=== PATIENT | female | born 1980 | race Caucasian/White ===

== ENCOUNTER 2016-11-11 06:09 | Emergency (ER) | payer OTHER ==
[~2016-11-11] VITALS: Ht 165.1 cm; Wt 75.5 kg
[~2016-11-11 06:09] MED LIST: CARB15DR50 BOTH EARS; FERR325C PO; METF500T4 PO; NORE1TAB12 PO; NPH10OT BOTH EARS
[2016-11-11 06:13] VITALS: Ht 165.1 cm; Wt 75.5 kg
[2016-11-11] MEDS ORDERED: LIDOCAINE 2% (MDV) 20 ML INJ INJ ONE (08:00)
[2016-11-11] MEDS ORDERED: CEFTRIAXONE 1 GM INJ IM ONE (08:00)
[2016-11-11] MEDS ORDERED: SULF1TAB31 PO (09:07)
[2016-11-11] MEDS ORDERED: CEPH-443 PO (09:08)
[2016-11-11] MEDS ORDERED: BEN25 PO (09:20)
--- NOTE | 2016-11-11 09:20 | ERD ---
ER Documentation Chief Complaint Date/Time DATE: 11/11/16 TIME: 09:17 Chief Complaint POSSIBLE INSECT BITE TO GHAZALA HPI This is a 36-year-old female presents to the ER with an insect bite to her left upper arm that occurred on Saturday. Patient states that area became swollen and itchy, and she noticed that area became more red and warm to the touch. Patient does admit to tactile fevers. She denies any numbness or tingling of the area. She denies any chest pain or shortness of breath. She does admit to mild headache and some nausea. She denies vomiting or diarrhea. Patient denies any urinary frequency or dysuria. ROS 12 point review of systems was done, all negative except per HPI. Medications Home Meds Active Scripts Cephalexin* (Keflex*) 500 Mg Capsule, 500 MG PO QID for 7 Days, CAP Prov:EMERITA AVELAR 11/11/16 Sulfamethoxazole/Trimethoprim* (Bactrim Ds* Tablet) 1 Each Tablet, 1 TAB PO BID , #14 TAB Prov:EMERITA AVELAR 11/11/16 Neomycin/Polymyxin/Hydrocort* (Cortisporin* Otic) 10 Ml Susp, 4 DROP BOTH EARS QID for 7 Days, EA Prov:VARSHA WELLS PA-C 04/22/16 Carbamide Peroxide* (Debrox*) 6.5% - 15 Ml Drops, 10 DROP BOTH EARS BID, #1 BOTTLE Prov:VARSHA WELLS PA-C 04/22/16 Metformin* (Glucophage*) 500 Mg Tab, 500 MG PO BID, #20 TAB Prov:VARSHA WELLS PA-C 04/22/16 Noreth A-Et Estra/Fe Fumarate (LO LOESTRIN FE 1-10 TABLET) 1 Each Tablet, 1 EACH PO QHS for 28 Days, TAB Prov:EMERITA AVELAR 07/26/15 Ferrous Sulfate (Iron) 325 Mg Capsr, 325 MG PO TID for 30 Days Prov:EMERITA AVELAR 07/26/15 Metformin Hcl* (Metformin Hcl*) 500 Mg Tablet, 500 MG PO BID, #60 TAB Prov:EMERITA AVELAR 07/26/15 Allergies Allergies: Coded Allergies: No Known Allergy (Unverified , 11/11/16) PMhx/Soc History of Surgery: No Anesthesia Reaction: No Hx Neurological Disorder: No Hx Respiratory Disorders: No Hx Cardiac Disorders: No Hx Psychiatric Problems: No Hx Miscellaneous Medical Probl: No Hx Alcohol Use: No Hx Substance Use: No Hx Tobacco Use: No Smoking Status: Never smoker Physical Exam Vitals Vital Signs Date Time Temp Pulse Resp B/P Pulse Ox O2 Delivery O2 Flow Rate FiO2 11/11/16 06:13 99.1 82 16 110/66 97 Physical Exam GENERAL: The patient is well developed and appropriate for usual state of health , in no apparent distress. HEENT: Atraumatic. CHEST: Clear to auscultation bilaterally. There are no rales, wheezes or rhonchi. HEART: Regular rate and rhythm. No murmurs, clicks, rubs or gallops. EXTREMITIES: Equal pulses bilaterally. There is no peripheral clubbing, cyanosis or edema. No focal swelling or erythema. Full range of motion. Grossly neurovascularly intact. NEURO: Alert and oriented. Cranial nerves II through XII are intact. Motor strength in all 4 extremities with 5/5 strength. Sensation grossly intact. Normal speech and gait. SKIN: There is a bug bite to the left upper inner arm with surrounding erythema that extends about 6 cm from bug bite. Area is slightly swollen and warm to the touch. No lymphatic streaking. Results 24 hrs Laboratory Tests Test 11/11/16 08:31 Bedside Glucose 289mg/dL Current Medications Medications (Trade) Dose Ordered Sig/Hari Route PRN Reason Start Time Stop Time Status Last Admin Dose Admin Ceftriaxone Sodium (Rocephin) 1 gm ONCE ONCE IM 11/11/16 08:00 11/11/16 08:01 DC 11/11/16 07:50 Lidocaine (Xylocaine 2% (Mdv) 20 ml) 20 ml ONCE ONCE INJ 11/11/16 08:00 11/11/16 08:01 DC 11/11/16 07:51 Procedures/MDM This is a 36-year-old female presents to the ER after being bitten by a bag on Saturday. Area does appear to be infected with surrounding erythema and warmth to the touch. Patient does have a past medical history of diabetes and therefore was given a shot of Rocephin here in the ER without any complications she will be sent home with both Bactrim and Keflex. At this time patient is afebrile and well-appearing. Suspicion for sepsis is low. Suspicion for osteomyelitis, deep space infection, acute compartment syndrome is low. Patient has full range of motion of her upper extremity and is neurovascularly intact. She is stable for outpatient follow-up. Patient is to follow-up with her primary care doctor within 1-2 days or return to ER sooner if symptoms worsen. My medical decision making shared with the patient she understands and agrees with plan. Departure Diagnosis: Primary Impression: Cellulitis Condition: Stable Patient Instructions: Cellulitis Additional Instructions: Call your primary care doctor TOMORROW for an appointment during the next 1-2 days.See the doctor sooner or return here if your condition worsens before your appointment time. EMERITA AVELAR Nov 11, 2016 09:20
[2016-11-11] MEDS ORDERED: ONDA-43 PO (09:21)
== END 2016-11-11 09:36 | disposition home or self-care (01) ==
LOC: FTE 06:09
DX: S40.862A Insect bite (nonvenomous) of left upper arm, initial encounter (principal); L03.114 Cellulitis of left upper limb; W57.XXXA Bitten or stung by nonvenomous insect and other nonvenomous arthropods, initial encounter; Y92.9 Unspecified place or not applicable; Z79.84 Long term (current) use of oral hypoglycemic drugs
CPT/HCPCS: 82962; 96372; J0696; Z7502; Z7610

== ENCOUNTER 2018-08-18 18:08 | Emergency (ER) | payer SELFPAY ==
[~2018-08-18] VITALS: Wt 74.2 kg
[~2018-08-18 18:08] MED LIST changes: +BEN25 PO; +CEPH-443 PO; +METF-849 PO; +METF500T24 PO; -METF500T4 PO; +ONDA4TAB13 PO; +SULF1TAB31 PO
[2018-08-18 18:33] VITALS: BP 127/78; PULSE 78; RESP 18
[2018-08-18] MEDS ORDERED: ACETAMINOPHEN 325 MG TAB PO STA (19:40)
--- NOTE | 2018-08-18 19:46 | ERD ---
ER Documentation Chief Complaint Chief Complaint non traumatic headache for 3 wks. no neuro deficit noted. HPI This is a 38-year-old female patient who presents to the emergency room with c omplaint of pain to right face radiating into right ear and up behind right skull and bilateral upper trapezius. +throbbing. +photophobia, +photophobia, + numbness, +subjective fever, denies tooth pain. No recent illnesses, no significant medical history. ROS All systems reviewed and are negative except as per history of present illness. Medications Home Meds Active Scripts Hydrocodone/Acetaminophen (G[place]mora 10-325 Tablet) 1 Each Tablet, 1 TAB PO Q6H PRN for PAIN, #7 TAB Prov:WILLIAMS HORN TRANSFORMER REPAIRER 08/18/18 Gabapentin* (Gabapentin*) 300 Mg Capsule, 300 MG PO BID, #20 CAP Prov:WILLIAMS HORN TRANSFORMER REPAIRER 08/18/18 Ondansetron Hcl* (Zofran*) 4 Mg Tab, 4 MG PO Q4H PRN for NAUSEA AND OR VOMITING, #20 TAB Prov:EMERITA AVELAR 11/11/16 Diphenhydramine Hcl* (Benadryl*) 25 Mg Cap, 25 MG PO Q6, #30 CAP Prov:EMERITA AVELAR 11/11/16 Cephalexin* (Keflex*) 500 Mg Capsule, 500 MG PO QID for 7 Days, CAP Prov:EMERITA AVELAR 11/11/16 Sulfamethoxazole/Trimethoprim* (Bactrim Ds* Tablet) 1 Each Tablet, 1 TAB PO BID, #14 TAB Prov:EMERITA AVELAR 11/11/16 Neomycin/Polymyxin/Hydrocort* (Cortisporin* Otic) 10 Ml Susp, 4 DROP BOTH EARS QID for 7 Days, EA Prov:VARSHA WELLS PA-C 04/22/16 Carbamide Peroxide* (Debrox*) 6.5% - 15 Ml Drops, 10 DROP BOTH EARS BID, #1 BOTTLE Prov:VARSHA WELLS PA-C 04/22/16 Metformin* (Glucophage*) 500 Mg Tab, 500 MG PO BID, #20 TAB Prov:VARSHA WELLS PA-C 04/22/16 Noreth A-Et Estra/Fe Fumarate (LO LOESTRIN FE 1-10 TABLET) 1 Each Tablet, 1 EACH PO QHS for 28 Days, TAB Prov:EMERITA AVELAR 07/26/15 Ferrous Sulfate (Iron) 325 Mg Capsr, 325 MG PO TID for 30 Days Prov:EMERITA AVELAR 07/26/15 Metformin Hcl* (Metformin Hcl*) 500 Mg Tablet, 500 MG PO BID, #60 TAB Prov:EMERITA AVELAR 07/26/15 Allergies Allergies: Coded Allergies: No Known Allergy (Unverified , 11/11/16) PMhx/Soc Medical and Surgical Hx: pt denies Medical Hx, pt denies Surgical Hx History of Surgery: No Anesthesia Reaction: No Hx Neurological Disorder: No Hx Respiratory Disorders: No Hx Cardiac Disorders: No Hx Psychiatric Problems: No Hx Miscellaneous Medical Probl: No Hx Alcohol Use: No Hx Substance Use: No Hx Tobacco Use: No Smoking Status: Never smoker FmHx Family History: No diabetes, No coronary disease, No other Physical Exam Vitals Vital Signs Date Temp Pulse Resp B/P (MAP) Pulse Ox O2 O2 Flow FiO2 Time Delivery Rate 08/18/18 98.8 78 18 127/78 99 18:33 (94) Physical Exam GENERAL APPEARANCE: Well developed, well nourished, alert and cooperative, and appears to be in no acute distress. HEAD: normocephalic, no scalp tenderness, no tenderness at synagogue, no palpable temporal artery EYES: PERRLA, EOMI. Vision is grossly intact. No tearing. No ptosis. EARS: External auditory canals and tympanic membranes clear, hearing grossly intact. +preauricular tenderness to right ear. NOSE: No nasal discharge, +tenderness @ right maxillary sinus THROAT: Oral cavity and pharynx normal. No inflammation, swelling, exudate, pteechiae or lesions. Teeth and gingiva in good general condition. NECK: Neck supple, non-tender without lymphadenopathy, masses or thyromegaly. FROM. CARDIAC: Normal S1 and S2. No S3, S4 or murmurs. Rhythm is regular. There is no peripheral edema, cyanosis or pallor. Extremities are warm and well perfused. Capillary refill is less than 2 seconds. No carotid bruits. LUNGS: Clear to auscultation and percussion without rales, rhonchi, wheezing or diminished breath sounds. ABDOMEN: Positive bowel sounds. Soft, non-distended, non-tender. No guarding or rebound. No murmurs MUSKULOSKELETAL: Adequately aligned spine. ROM intact spine and extremities. No joint erythema or tenderness. Normal muscular development. Normal gait. BACK: Examination of the spine reveals normal gait and posture, no spinal deformity, symmetry of spinal muscles, without tenderness, decreased range of motion or muscular spasm. EXTREMITIES: No significant deformity or joint abnormality. No edema. Peripheral pulses intact. NEUROLOGICAL: A&Ox4, CN II-XII intact. Increased sensation to palpation of right face, equal smile, clear speech. Strength and sensation symmetric and intact throughout. Gait steady. Cerebellar testing normal. SKIN: Skin normal color, texture and turgor with no lesions or eruptions PSYCHIATRIC: The mental examination revealed the patient was oriented to person, place, and time. The patient was able to demonstrate good judgment and reason, without hallucinations, abnormal affect or abnormal behaviors during the examination. l Results 24 hrs Laboratory Tests Test 08/18/18 18:35 Bedside Glucose 447 mg/dL Current Medications Medications Dose Sig/Hari Start Time Status Last (Trade) Ordered Route PRN Stop Time Admin Dose Reason Admin 650 mg ONCE STAT 08/18/18 DC 08/18/18 Acetaminophen PO 19:40 19:51 (Tylenol 08/18/18 19:46 Tab) Procedures/MDM This is a 38-year-old female patient who presented to the emergency room with complaint of right-sided facial and head pain increasing in severity severity for 3 weeks. States this is the first time she has had a headache or facial pain with these symptoms. ED COURSE: The patient was stable throughout ED course. I kept the patient and family informed of diagnostic imaging results throughout the ED course. DIAGNOSTIC IMAGING: CT Brain: The ventricles and cortical sulci are within normal limits for pa aguilant's age. There are no areas of abnormal attenuation within the brain parenchyma. There is no mass effect or midline shift. There is no intracranial hemorrhage or abnormal extra-axial collection. The calvarium is intact. There is no evidence of fracture. Visualized paranasal sinuses and mastoid air cells are clear. IMPRESSION: No acute intracranial abnormality identified. Read by radiologist. MEDICATIONS GIVEN: Tylenol 650 mg. Patient took Ibuprofen prior to arrival. Patient tolerated medication well with no adverse reactions. Patient reported resolution of pain. MDM: The patient's symptoms are suggestive for trigeminal neuralgia. Carbamazepine treatment was discussed with patient and deferred for follow-up with PMD to allow for close monitoring. Additionally referral to neurology may be preferred for definitive diagnosis. Carbamazepine is sedating and has untoward side ef fects requiring close monitoring and titration that is not possible through the ED. Additionally, the patient's symptoms had resolved at time of reassessment which may indicate migraine headache rather than TGN therefore NSAIDS, gabapentin, and rescue Glenmora were prescribed. Patient and partner verbalized understanding of POC and need for close follow-up with PMD or neurology. Patient states she has MD to see tomorrow. The patient was well-appearing with VSS and without neurological deficits at time of reevaluation and discharge. Clinical and diagnostic exam not suggestive of infection, intracranial process, SAH, SDH, neoplasm, meningitis, encephalitis, aneurysm, thrombus, temporal arteritis, sinusitis. The patient has been provided with instructions on self-care including use of analgesia, reducing triggers, and need for close follow-up with primary care physician within 1-2 days for reevaluation. The patient has been instructed to return immediately for worsening symptoms, change in pattern of current symptoms, or other acute problems. DISPOSITION: The patient has been discharge home to follow-up with community physician. [facility] database reviewed for controlled substance history. There is no indication the patient is abusing prescription medications or is at risk for misuse. History and Physical exam demonstrate the prescribed medication is indicated for the treatment of the patient's condition. Departure Diagnosis: Primary Impression: Trigeminal neuralgia of right side of face Condition: Stable Patient Instructions: Trigeminal Neuralgia Referrals: [facility] Additional Instructions: Thank you very much for allowing us to participate in your care. Your health and safety is our top priority at [facility]. Call your primary care doctor TOMORROW for an appointment during the next 2-4 days and bring all the information and medications prescribed. Have prescriptions filled and follow precisely the directions on the label. If the symptoms get worse and your provider is unavailable, return to the Emergency Department immediately. There is a 24-hour pharmacy on [address] Treatment for your pain: 1st: Ibuprofen 600-800 mg every 8 hours 2nd: Gabapetin 300mg for sleep or when you will not be driving or working 3rd: Glenmora 10 mg, every 4-6 hours as needed for severe pain Please follow-up with your primary care doctor as soon as possible for reevaluation and to discuss other medications such as Carbamazepine and/or referral to neurology Return to the emergency room immediately for unrelenting pain, fever, visual disturbances, slurred speech, weakness or any other concerning symptoms WILLIAMS HORN NP Aug 18, 2018 19:46
[2018-08-18] MEDS ORDERED: HYDR-3980 PO (21:30)
[2018-08-18] MEDS ORDERED: GABA300C16 PO (21:30)
== END 2018-08-18 21:37 | disposition home or self-care (01) ==
LOC: FTE 18:08
DX: G50.0 Trigeminal neuralgia (principal); Z79.84 Long term (current) use of oral hypoglycemic drugs
CPT/HCPCS: 70450; 82962